=== PATIENT | male | born 1970 | race Caucasian/White ===

== ENCOUNTER 2025-04-03 09:18 | Day surgery (SDC) | payer OTHER ==
[~2025-04-03 09:18] MED LIST: ACET500 PO; ALBU3IS INH; ALPR.5 PT; AMIT10 PO; AMIT10 PT; BACL10 PO; BACL10 PT; CHOL10002 PT; CITA20 PO; CITA20 PT; DIAZ2 PT; DIPH50 PT; DOC100SO PT; Diazepam2 MG PO; Docusate S50 MG/5 ML PO; FAMO20 PO; Flunisolide25 ML NS; GUAI600T33 PT; HYDR1TAB94 PT; IBUP800 PT; IRON PT; Ipratr-Albuterol3 ML IH; LEVO750 PO; METR500 PO; NUEDEXTA 20-101 EACH PT; ONDA4SO PO; OSMOLITE PT; PERIDEX15 ML PO; PROM25 PO; RILUZOLE50 MG PO; RILUZOLE50 MG PT; Ranitidine HCl150 M1 PT; SCOPTP TOP; SUMA6I SC; TIZANIDINE HCL2 MG PT; TIZANIDINE HCL4 MG PO; ZEGERID 40 MG PT; ZOLP5 PO; [UNRECOGNIZED DRUG - CODE] PO; [UNRECOGNIZED DRUG - MIXTURE] INH
--- NOTE | 2025-04-03 10:24 | NUR ---
G-TUBE EXCHANGED BY DR MAURO. PT TOLERATED PROCEDURE WELL. PT FAMILY VERBAILZED UNDERSTANDING OF D/C INST. PT LEFT /C FAMILY VIA W/C.
== END 2025-04-03 10:20 | disposition home or self-care (01) ==
LOC: MHTC 09:18
DX: G12.21 Amyotrophic lateral sclerosis (principal)